=== PATIENT | female | born 1960 ===

== ENCOUNTER 2021-09-07 10:17 | Outpatient (CLI) | payer OTHER ==
[2021-09-07 11:27] LABS: Hemoglobin 13.6 g/dL (12.0-15.5); Mean Corpuscular HGB CONC 32.8 g/dL (32.0-36.0); Mean Corpuscular Hemoglobin 29.4 pg (27.0-33.0); Mean Corpuscular Volume 89.8 fl (81.6-98.3); Mean Platelet Volume 10.3 fl (7.4-10.4); Platelet Count 227 10x3/uL (150-450); RBC Distribution Width 13.8 % (11.5-14.5); Red Blood Cell (RBC) Count 4.62 10x6/uL (3.90-5.03); White Blood Cell (WBC) Count 12.8 10x3/uL (3.5-10.5)
[2021-09-07 11:52] LABS: INR-International Normal Ratio 0.9; PTT 23.4 sec (22.0-33.0); Prothrombin Time 10.2 sec (9.5-12.1)
[2021-09-07 12:10] LABS: Anion Gap 14 mmol/L (10-20); BUN (Urea Nitrogen) 9 mg/dL (9.8-20.1); Calc. Creatinine Clearance 0 mL/min (70-130); Calcium 10.1 mg/dL (7.8-10.44); Carbon Dioxide 27 mmol/L (22-29); Chloride 104 mmol/L (98-107); Glucose 83 mg/dL (70-105); Potassium 4.1 mmol/L (3.5-5.1); Sodium 141 mmol/L (136-145)
[2021-09-07 12:59] LABS: EPI 85 SEC (67-199); Platelet Count 227 thou/uL (130-400)
[2021-09-07 20:48] LABS: SARS-CoV-2 PCR by NAA Not Detected (NotDetected)
== END 2021-09-07 10:18 | disposition home or self-care (01) ==
LOC: LABBT 10:17
PROVIDERS: ATTEND Urology
DX: Z01.812 Encounter for preprocedural laboratory examination (principal); Z20.822 Contact with and (suspected) exposure to COVID-19
CPT/HCPCS: 80048; 85027; 85576; 85610; 85730; U0003; U0005

== ENCOUNTER 2021-09-11 07:48 | Day surgery (SDC) | payer OTHER ==
[2021-09-06 12:57] VITALS: BMI 19.7
[2021-09-11] MEDS ORDERED: Ioversol 68 % 50 ML VIAL ONE (11:09)
[2021-09-11] MEDS ORDERED: Iopamidol 10 ML FS ONE (11:10)
[2021-09-11] MEDS ORDERED: Dexamethasone 20 MG/5 ML VIAL ONE (11:37)
[2021-09-11] MEDS ORDERED: ePHEDrine 50 MG/ML VIAL ONE (11:37)
[2021-09-11] MEDS ORDERED: Ondansetron PF 4 MG/2 ML Vial ONE (11:37)
[2021-09-11] MEDS ORDERED: PROPOFOL 200 MG/20 ML VIAL ONE (11:37)
[2021-09-11] MEDS ORDERED: Lidocaine 1% PF 5 ML VIAL ONE (11:37)
== END 2021-09-11 14:10 | disposition home or self-care (01) ==
LOC: SDC 07:48
PROVIDERS: ATTEND Urology
PROC: 0TF4XZZ Fragmentation in Left Kidney Pelvis, External Approach (ICD-10-PCS; principal; 2021-09-11)
DX: N20.0 Calculus of kidney (principal); I10 Essential (primary) hypertension; E78.5 Hyperlipidemia, unspecified; F17.210 Nicotine dependence, cigarettes, uncomplicated; K21.9 Gastro-esophageal reflux disease without esophagitis; Z79.82 Long term (current) use of aspirin; Z79.899 Other long term (current) drug therapy
CPT/HCPCS: 74018; J1100; J2405; J2704; J3490; Q9966; Q9967

== ENCOUNTER 2021-09-15 09:51 | Day surgery (SDC) | payer OTHER ==
[2021-09-15] MEDS ORDERED: Morphine 4 MG/ML VIAL ONE ×2 (10:18→10:54)
[2021-09-15] MEDS ORDERED: cefTRIAXone\\ROCEPHIN 1 GM VIAL ONE (10:18)
[2021-09-15] MEDS ORDERED: Ondansetron PF 4 MG/2 ML Vial ONE ×2 (10:19→13:39)
[2021-09-15 10:39] LABS: #Basophils 0.1 thou/uL (0.0-0.2); #Lymphocytes 1.7 thou/uL (1.20-3.40); #Monocytes 1.3 thou/uL (0.11-0.59); #Neutrophils 16.6 thou/uL (1.40-6.50); %Basophils 0.3 % (0.0-1.0); %Eosinophils 0.1 % (0.0-10.0); %Lymphocytes 8.8 % (21.0-51.0); %Monocytes 6.5 % (0.0-10.0); %Neutrophils 84.3 % (42.0-75.0); Hemoglobin 13.9 g/dL (12.0-16.0); Mean Corpuscular Hemoglobin 30.7 pg (27.0-31.0); Mean Corpuscular Volume 90.4 fL (78.0-98.0); Mean Platelet Volume 7.8 fL (7.4-10.4); Platelet Count 196 thou/uL (130-400); RBC Distribution Width 12.3 % (11.5-14.5); Red Blood Cell (RBC) Count 4.53 mill/uL (4.20-5.40); White Blood Cell (WBC) Count 19.7 thou/uL (4.8-10.8)
[2021-09-15] MEDS ORDERED: Acetaminophen 500 MG TAB ONE (10:54)
[2021-09-15 10:59] LABS: ALT (SGPT) 12 U/L (8-55); AST (SGOT) 16 U/L (5-34); Albumin 4.3 g/dL (3.5-5.0); Alkaline Phosphatase 144 U/L (40-110); Anion Gap 20 mmol/L (10-20); BUN (Urea Nitrogen) 12 mg/dL (9.8-20.1); Bilirubin, Total 0.8 mg/dL (0.2-1.2); Calc. Creatinine Clearance 0 mL/min (70-130); Calcium 10.3 mg/dL (7.8-10.44); Carbon Dioxide 22 mmol/L (22-29); Chloride 95 mmol/L (98-107); Globulin 3.6 g/dL (2.4-3.5); Glucose 111 mg/dL (70-105); Lipase 11 U/L (8-78); Potassium 3.9 mmol/L (3.5-5.1); Protein, Total 7.9 g/dL (6.0-8.3); Sodium 133 mmol/L (136-145)
[2021-09-15 11:11] LABS: Bacteria/HPF None Seen HPF (None Seen); Bilirubin Negative (Negative); Blood, Urine 3+ (Negative); Clarity Clear (Clear); Glucose, Urine (Dipstick) Normal (Negative); Ketone, Urine 20 mg/dL (Negative); Leukocyte Negative Leu/uL (Negative); Nitrite Negative (Negative); Protein, Urine (Dipstick) 50 mg/dL (Neg-Trace); Urobilinogen Normal mg/dL (Less than 2)
[2021-09-15] MEDS ORDERED: HYDROmorphone 0.5 MG/0.5 ML SYRINGE ONE (11:34)
[2021-09-15 12:58] LABS: Blood Culture - Extra Bottle RECEIVED; Blue RECEIVED; Gold RECEIVED; Green RECEIVED; Lavender RECEIVED; SST 8.5mL RECEIVED
[2021-09-15] MEDS ORDERED: fentaNYL Citrate/PF 100 MCG/2 ML SYRINGE ONE (13:04)
[2021-09-15] MEDS ORDERED: Dexmedetomidine 200 MCG/2 ML VIAL ONE (13:05)
[2021-09-15] MEDS ORDERED: ceFAZolin (BATCH) 2 GM/100 ML BAG ONE (13:14)
[2021-09-15] MEDS ORDERED: Ioversol 68 % 50 ML VIAL ONE (13:16)
[2021-09-15] MEDS ORDERED: ePHEDrine 50 MG/ML VIAL ONE (13:39)
[2021-09-15] MEDS ORDERED: Succinylcholine 200 MG/10 ml SYRINGE FS ONE (13:39)
[2021-09-15] MEDS ORDERED: PROPOFOL 200 MG/20 ML VIAL ONE (13:39)
[2021-09-15] MEDS ORDERED: Lidocaine 1% PF 5 ML VIAL ONE (13:39)
[2021-09-15] MEDS ORDERED: Dexamethasone 20 MG/5 ML VIAL ONE (13:39)
[2021-09-15] MEDS ORDERED: Iopamidol-370 76% 500 ML 1 ML ONE (14:38)
== END 2021-09-15 16:16 | disposition home or self-care (01) ==
LOC: ERS 09:51 → SDC 11:54
PROVIDERS: ATTEND Urology
PROC: 0T9780Z Drainage of Left Ureter with Drainage Device, Via Natural or Artificial Opening Endoscopic (ICD-10-PCS; principal; 2021-09-15)
DX: N13.2 Hydronephrosis with renal and ureteral calculous obstruction (principal); I10 Essential (primary) hypertension; E78.5 Hyperlipidemia, unspecified; Z79.82 Long term (current) use of aspirin; Z79.899 Other long term (current) drug therapy; Z93.1 Gastrostomy status
CPT/HCPCS: 74177; 74420; 80053; 81003; 81015; 83605; 83690; 85025; 87086; 96365; 96375; 96376; C2617; J0690; J0696; J1100; J1170; J2270; J2405; J2704; J3490; Q9967

== ENCOUNTER 2021-10-04 09:49 | Outpatient (CLI) | payer OTHER ==
[2021-10-05 01:01] LABS: SARS-CoV-2 PCR by NAA Not Detected (NotDetected)
== END 2021-10-04 09:50 | disposition home or self-care (01) ==
LOC: LABBT 09:49
PROVIDERS: ATTEND Urology
DX: Z01.818 Encounter for other preprocedural examination (principal); N20.1 Calculus of ureter; Z20.822 Contact with and (suspected) exposure to COVID-19
CPT/HCPCS: 87086; 93005; 93010; U0003; U0005

== ENCOUNTER 2021-10-09 06:47 | Day surgery (SDC) | payer OTHER ==
[2021-10-05 12:31] VITALS: BMI 19.7
[2021-10-09] MEDS ORDERED: Fentanyl 100 MCG/2 ML VIAL ONE (07:41)
[2021-10-09] MEDS ORDERED: cefTRIAXone\\ROCEPHIN 1 GM VIAL ONE (07:43)
[2021-10-09] MEDS ORDERED: Sodium Chloride 0.9% 100 ML ONE (07:43)
[2021-10-09] MEDS ORDERED: Iopamidol 45 ML ONE (07:47)
[2021-10-09] MEDS ORDERED: Ondansetron PF 4 MG/2 ML Vial ONE (07:55)
[2021-10-09] MEDS ORDERED: Lidocaine 1% PF 5 ML VIAL ONE (07:55)
[2021-10-09] MEDS ORDERED: Glycopyrrolate 0.2 MG/ML 5 ML SYRINGE ONE (07:55)
[2021-10-09] MEDS ORDERED: Rocuronium Bromide 10 MG/ML (10ML VIAL) ONE (07:55)
[2021-10-09] MEDS ORDERED: ePHEDrine 50 MG/ML VIAL ONE (07:55)
[2021-10-09] MEDS ORDERED: PHENYLEPHRINE-NS 100 MCG/ML 10 ML SYRINGE ONE (07:55)
[2021-10-09] MEDS ORDERED: Esmolol 100 MG/10 ML VIAL ONE (07:55)
[2021-10-09] MEDS ORDERED: Dexamethasone 20 MG/5 ML VIAL ONE (07:55)
[2021-10-09] MEDS ORDERED: PROPOFOL 200 MG/20 ML VIAL ONE (07:55)
[2021-10-12 14:15] LABS: CA Oxalate Dihydrate 10 % (.); CA Oxalate Monohydrate 90 % (.); Color Brown (.); Stone Weight 57 mg (.)
== END 2021-10-09 10:20 | disposition home or self-care (01) ==
LOC: SDC 06:47
PROVIDERS: ATTEND Urology
PROC: 0TC48ZZ Extirpation of Matter from Left Kidney Pelvis, Via Natural or Artificial Opening Endoscopic (ICD-10-PCS; principal; 2021-10-09)
PROC: 0T778DZ Dilation of Left Ureter with Intraluminal Device, Via Natural or Artificial Opening Endoscopic (ICD-10-PCS; principal; 2021-10-09)
PROC: 0TC78ZZ Extirpation of Matter from Left Ureter, Via Natural or Artificial Opening Endoscopic (ICD-10-PCS; principal; 2021-10-09)
DX: N20.2 Calculus of kidney with calculus of ureter (principal); I10 Essential (primary) hypertension; E11.9 Type 2 diabetes mellitus without complications; Z79.82 Long term (current) use of aspirin; Z79.899 Other long term (current) drug therapy
CPT/HCPCS: 74420; 82365; 88300; C2617; J0696; J1100; J2405; J2704; J3010; J3490; Q9967

== ENCOUNTER 2022-09-07 10:51 | Emergency (ER) | payer OTHER ==
[2022-09-07 11:46] LABS: #Monocytes 0.3 thou/uL (0.11-0.59); #Neutrophils 9.8 thou/uL (1.40-6.50); %Basophils 0.4 % (0.0-1.0); %Eosinophils 0.1 % (0.0-10.0); %Lymphocytes 8.9 % (21.0-51.0); %Monocytes 2.8 % (0.0-10.0); %Neutrophils 87.7 % (42.0-75.0); Hemoglobin 13.6 g/dL (12.0-16.0); Mean Corpuscular HGB CONC 33.1 g/dL (32.0-36.0); Mean Corpuscular Hemoglobin 29.9 pg (27.0-31.0); Mean Corpuscular Volume 90.4 fl (78.0-98.0); Mean Platelet Volume 7.7 fL (7.4-10.4); Platelet Count 162 10x3/uL (130-400); RBC Distribution Width 12.1 % (11.5-14.5); Red Blood Cell (RBC) Count 4.53 mill/uL (4.20-5.40); White Blood Cell (WBC) Count 11.1 10x3/uL (4.8-10.8)
[2022-09-07 12:09] LABS: ALT (SGPT) 14 U/L (8-55); AST (SGOT) 13 U/L (5-34); Albumin 4.7 g/dL (3.4-4.8); Alkaline Phosphatase 141 U/L (40-110); Anion Gap 13 mmol/L (10-20); BUN (Urea Nitrogen) 12 mg/dL (9.8-20.1); Bilirubin, Total 0.6 mg/dL (0.2-1.2); Calc. Creatinine Clearance 0 mL/min (70-130); Calcium 10.6 mg/dL (7.8-10.44); Carbon Dioxide 26 mmol/L (23-31); Chloride 102 mmol/L (98-107); Estimated GFR 76; Globulin 3.1 g/dL (2.4-3.5); Glucose 122 mg/dL (80-115); Lipase 18 U/L (8-78); Magnesium 1.8 mg/dL (1.6-2.6); Potassium 4.5 mmol/L (3.5-5.1); Protein, Total 7.8 g/dL (5.8-8.1); Sodium 136 mmol/L (136-145)
[2022-09-07] MEDS ORDERED: Metoclopramide HCl 10 MG/2 ML VIAL ONE (12:35)
[2022-09-07] MEDS ORDERED: diphenhydrAMINE 50 MG/ML VIAL ONE (12:35)
[2022-09-07] MEDS ORDERED: SUMAtriptan Succinate 6 MG/0.5 ML VIAL ONE (14:58)
[2022-09-07 15:50] LABS: Bacteria/HPF None Seen HPF (None Seen); Bilirubin Negative (Negative); Blood, Urine 3+ (Negative); Clarity Clear (Clear); Glucose, Urine (Dipstick) Normal (Negative); Ketone, Urine Trace mg/dL (Negative); Leukocyte Negative Leu/uL (Negative); Nitrite Negative (Negative); Protein, Urine (Dipstick) Negative (Neg-Trace); RBC/HPF 21-50 HPF (0-3); Specific Gravity, Urine 1.008 (1.002-1.036); Squamous Epithelial 0-3 HPF (0-3); Urobilinogen Normal mg/dL (Less than 2); WBC/HPF 0-3 HPF (0-3)
[2022-09-07 15:57] LABS: Amphetamine Not Detected (NotDetected); Barbiturates Screen Not Detected (NotDetected); Benzodiazepine Screen Detected (NotDetected); Cocaine Metabolite Screen Not Detected (NotDetected); Methadone Not Detected (NotDetected); Methamphetamine Not Detected (NotDetected); Opiate Screen Not Detected (NotDetected); Oxycodone Screen Not Detected (NotDetected); Phencyclidine (PCP) Not Detected (NotDetected); THC/Cannabinoid Screen Not Detected (NotDetected); Tricyclic Screen Not Detected (NotDetected)
== END 2022-09-07 16:50 | disposition home or self-care (01) ==
LOC: ERS 10:51
DX: R51.9 Headache, unspecified (principal); E86.0 Dehydration; E86.1 Hypovolemia; I10 Essential (primary) hypertension; E78.5 Hyperlipidemia, unspecified; Z87.891 Personal history of nicotine dependence; Z79.899 Other long term (current) drug therapy; Z79.82 Long term (current) use of aspirin
CPT/HCPCS: 36415; 70450; 71045; 80053; 80306; 81003; 81015; 83690; 83735; 84484; 85025; 93005; 96365; 96372; 96375; J1200; J2765; J3030